=== PATIENT | female | born 1950 | race Caucasian/White ===

== ENCOUNTER 2019-08-16 07:47 | Day surgery (SDC) | payer OTHER ==
[2019-08-14 14:45] LABS: Absolute Lymphocytes (CBC) 1.4 K/uL (0.7-4.9); Basophils % 0.6 % (0-1.3); Hematocrit 42.1 % (36.0-45.0); MPV 8.5 fL (7.6-11.3)
--- NOTE | 2019-08-14 15:24 | RAD REPORT ---
EXAM DESCRIPTION: RAD - Chest Pa And Lat (2 Views) - 08/14/2019 2:40 pm CLINICAL HISTORY: preop, left arm soft tissue debridement COMPARISON: No comparisons TECHNIQUE: Frontal and lateral views of the chest were obtained. FINDINGS: The lungs are clear. Heart size is normal and central vasculature is within normal limit s. No pleural effusion or pneumothorax seen. No acute bony finding noted. No aortic abnormality. IMPRESSION: No acute cardiopulmonary process.
--- NOTE | 2019-08-14 15:24 | EKG ---
Test Date: 2019-08-14 Test Time: 14:40:18 Computer Game Programmer: LYNDSAY MEASUREMENT RESULTS: Intervals: Rate: 63 GA: 172 QRSD: 94 QT: 416 QTc: 425 Salix: P: 66 GA: 172 QRS: 65 T: 69 INTERPRETIVE STATEMENTS: Normal sinus rhythm Nonspecific ST and T wave abnormality Abnormal ECG Compared to ECG 09/18/2013 13:57:35 Possible ischemia no longer present ST (T wave) deviation still present Electronically Signed On 08-14-19 15:23:53 MANAGER MANUFACTURING by Natanael Hanna
[2019-08-16] MEDS ORDERED: CEFAZOLIN/SWI 1gm 1 GM/10 ML SYR ONE (07:57)
[2019-08-16] MEDS ORDERED: Ringers Lactate 1,000 ML IV ONE (07:57)
[2019-08-16] MEDS ORDERED: propofoL 200 MG/20 ML VIAL IV ONE (08:31)
[2019-08-16] MEDS ORDERED: FENTANYL CITR 100 MCG/2 ML ONE (08:31)
[2019-08-16] MEDS ORDERED: LIDOCAINE 1% MPF 5 ML VIAL ONE (08:31)
[2019-08-16] MEDS ORDERED: MIDAZOLAM HCL 2 MG/2 ML INJ ONE (08:31)
[2019-08-16] MEDS ORDERED: KETOROLAC 30 MG/ML INJ ONE (09:19)
[2019-08-16] MEDS ORDERED: ONDANSETRON 4 MG/2 ML VIAL ONE (09:28)
[2019-08-16] MEDS ORDERED: BUPIVACAINE 0.5% PF 10 ML VIAL ONE (09:28)
[2019-08-16 10:12] VITALS: TEMP 98.7
[2019-08-16 10:36] VITALS: BP 111/60; O2SAT 98
--- NOTE | 2019-08-16 19:08 | OP ---
Date of Procedure: 08/16/2019 Surgeon: Govind Hood MD Preoperative Diagnosis: Nonhealing wound, left arm. Postoperative Diagnosis: Nonhealing wound, left arm. Procedure: Wide excision, nonhealing wound, left arm, 4 x 2 cm with layered closure. Length of clos ure 4 cm. Estimated Blood Loss: Minimal. Specimen: Suture granuloma. Finding: As above. Anesthesia: MAC. Complications: None. Disposition: Patient tolerated the procedure in stable condition, taken to Recovery in good general condition. Operative Note: Patient was brought to the OR and placed in supine position. MAC anesthesia begun. The patient was prepped and draped in the usual sterile fashion. Marcaine 0.5% was infiltrated loca lly. A 15-blade was used to make a 4 x 2 cm incision in the left upper arm along the incision that w as previously done for an orthopedic procedure. Subcu tissue divided. A suture with granulation tis sophie identified. Suture granuloma excised, sent to Pathology as specimen. Wound irrigated. Bleeding controlled with cautery. 2-0 chromic was used to approximate subcutaneous tissue and 5-0 nylon used to close skin in interrupted fashion. Sterile dressing was applied. Patient was awakened and taken to Recovery in good general condition. Discharge Note: The patient will go to Day Surgery, and home when stable. Disposition: Home. Condition: Stable. Discharge Instructions: Resume home medications and diet. Activity as tolerated. No heavy lifting. Remove outer dressing in 2 days. Shower. Keep wound clean and dry. Follow up Wound Healing Rox ba in my clinic in 2 weeks. Cipro 5 mg p.o. q.12 and Tylenol No. 3 one tablet p.o. q.4 p.r.n. pain. /MODL Voice ID: [id number] Report ID: [id number]
== END 2019-08-16 10:48 | disposition home or self-care (01) ==
LOC: OR 07:47
PROVIDERS: ATTEND Surgery
PROC: 0JBF0ZZ Excision of Left Upper Arm Subcutaneous Tissue and Fascia, Open Approach (ICD-10-PCS; principal; 2019-08-16 09:00)
DX: S41.102A Unspecified open wound of left upper arm, initial encounter (principal); E03.9 Hypothyroidism, unspecified; G47.30 Sleep apnea, unspecified; E66.01 Morbid (severe) obesity due to excess calories; Z68.41 Body mass index [BMI] 40.0-44.9, adult; Z91.040 Latex allergy status
CPT/HCPCS: 11404; 93005; 85025; 80048; 36415; 88304; 71046; J2704; J2250; J3010; J0690; J7120; J2405; 88305

== ENCOUNTER 2019-08-29 09:56 | Emergency (ER) | payer OTHER ==
--- NOTE | 2019-08-29 10:58 | RAD REPORT ---
EXAM DESCRIPTION: Melodie Liz (2 Views)08/29/2019 10:37 am CLINICAL HISTORY: Cough COMPARISON: July 2019 FINDINGS: The lungs appear clear of acute infiltrate. The heart is normal size IMPRESSION: No acute abnormalities displayed
--- NOTE | 2019-08-29 11:21 | ER ---
Nurse's Notes [facility] Name: Sheree Daniel Age: 69 yrs Sex: Female : 1950 Arrival Date: 08/29/2019 Time: 09:59 Bed 19 Private MD: Dedrick Lantigua Diagnosis: Influenza due to identified novel influenza A virus Presentation: 08/28 10:10 Chief complaint: Patient states: Cough, congestion started Tuesday. Fever Tuesday. C/O of ca1 pain when coughing. Coronavirus screen: The patient has NOT traveled to a country currently being monitored by the [facility] within the last 14 days. The patient has NOT had contact with any known and/or suspected case of coronavirus. Ebola Screen: Patient negative for fever greater than or equal to 101.5 degrees Fahrenheit, and additional compatible Ebola Virus Disease symptoms Patient denies exposure to infectious person. Patient denies travel to an Ebola-affected area in the 21 days before illness onset. No symptoms or risks identified at this time. Initial Sepsis Screen: Does the patient meet any 2 criteria? No. Patient's initial sepsis screen is negative. Does the patient have a suspected source of infection? No. Patient's initial sepsis screen is negative. Risk Assessment: Do you want to hurt yourself or someone else? Patient reports no desire to harm self or others. Onset of symptoms was August 29, 2019. 10:10 Method Of Arrival: Ambulatory ca1 10:10 Acuity: DORIAN 3 ca1 Triage Assessment: 10:13 General: Appears in no apparent distress. comfortable, Behavior is calm, cooperative, ca1 appropriate for age. Respiratory: Airway is patent Respiratory effort is even, unlabored, Respiratory pattern is regular, symmetrical. Historical: - Allergies: 10:13 No Known Allergies; ca1 - Home Meds: 10:13 levothyroxine 75 mcg tab 1 tab once daily [Active]; ca1 - PMHx: 10:13 Thyroid problem; ca1 - PSHx: 10:13 partial thyroidectomy; ca1 - Immunization history:: Adult Immunizations up to date, Pneumococcal vaccine is up to date, Flu vaccine is not up to date. - Social history:: Smoking status: Patient denies any tobacco usage or history of. Screenin:15 Abuse screen: Denies threats or abuse. Denies injuries from another. Nutritional jl7 screening: No deficits noted. Tuberculosis screening: No symptoms or risk factors identified. Fall Risk None identified. Assessment: 11:15 General: Appears in no apparent distress. uncomfortable. Pain: Denies pain. Neuro: jl7 Level of Consciousness is awake, alert, obeys commands. Cardiovascular: Patient's skin is warm and dry. Respiratory: Airway is patent Respiratory effort is even, unlabored, Respiratory pattern is regular, symmetrical. Derm: Skin is pink, warm \T\ dry. Vital Signs: 10:10 BP 112 / 78; Pulse 87; Resp 17 S; Temp 99.3(O); Pulse Ox 96% on R/A; Weight 102.06 kg ca1 (R); Height 8 ft. 4 in. (254.00 cm) (R); 10:10 Body Mass Index 15.82 (102.06 kg, 254.00 cm) ca1 ED Course: 09:59 Patient arrived in ED. mr 10:00 Dedrick Lantigua MD is Private Physician. mr 10:12 Triage completed. ca1 10:13 Arm band placed on right wrist. ca1 10:17 Flu and/or RSV swab sent to lab. Strep swab sent to lab. ca1 10:32 Rajan Juárez RN is Primary Nurse. jl7 10:33 Annmarie Kirkland [facility]-C [facility] kb 10:33 Aung Velarde MD is Attending Physician. kb 10:34 XRAY Chest Pa And Lat (2 Views) In Process Unspecified. EDMS 11:15 Patient has correct armband on for positive identification. Bed in low position. Call jl7 light in reach. Side rails up X 1. 11:15 No provider procedures requiring assistance completed. Patient did not have IV access jl7 during this emergency room visit. Administered Medications: No medications were administered Outcome: 11:20 Discharge ordered by . kb 11:43 Discharged to home ambulatory. jl7 11:43 Discharge instructions given to patient, Instructed on discharge instructions, follow up and referral plans. Demonstrated understanding of instructions, follow-up care. 11:44 Condition: stable jl7 11:44 Patient left the ED. jl7 Signatures: Dispatcher [employer] EDMS Annmarie Kirkland FNP-C [employer] MANAGER-Arjun Breann Canas mr Rajan Juárez RN RN jl7 Acob, Lucy, RN RN ca1 Corrections: (The following items were deleted from the chart) : 11:15 Discharged to home ambulatory, [place] [id number] 11:15 Condition: stable [place] [id number] 11:15 Discharge instructions given to patient, Instructed on discharge instructions, 7 follow up and referral plans. Demonstrated understanding of instructions, follow-up care, [facility]
--- NOTE | 2019-08-29 11:21 | EDPHYS ---
Physician Documentation [facility] Name: Sheree Daniel Age: 69 yrs Sex: Female : 1950 Arrival Date: 08/29/2019 Time: 09:59 Bed 19 Private MD: Dedrick Lantigua ED Physician Aung Velarde HPI: 08/28 10:57 This 69 yrs old Female presents to ER via Ambulatory with complaints of Flu kb Symptoms. 10:57 The patient or guardian reports cough, that is intermittent, described as moderate, kb with no sputum, flu symptoms. Onset: The symptoms/episode began/occurred 4 day(s) ago. Severity of symptoms: At their worst the symptoms were moderate, in the emergency department the symptoms are unchanged. Modifying factors: The symptoms are alleviated by nothing, the symptoms are aggravated by nothing. Associated signs and symptoms: The patient has no apparent associated signs or symptoms. The patient has not experienced similar symptoms in the past. The patient has not recently seen a physician. Pt reports she was at a conference over the weekend, started coughing and having chills on Tuesday morning and the symptoms have just gotten worse. . Historical: - Allergies: 10:13 No Known Allergies; ca1 - Home Meds: 10:13 levothyroxine 75 mcg tab 1 tab once daily [Active]; ca1 - PMHx: 10:13 Thyroid problem; ca1 - PSHx: 10:13 partial thyroidectomy; ca1 - Immunization history:: Adult Immunizations up to date, Pneumococcal vaccine is up to date, Flu vaccine is not up to date. - Social history:: Smoking status: Patient denies any tobacco usage or history of. ROS: 10:55 ENT: Negative for injury, pain, and discharge, Neck: Negative for injury, pain, and kb swelling, Cardiovascular: Negative for chest pain, palpitations, and edema, Abdomen/GI: Negative for abdominal pain, nausea, vomiting, diarrhea, and constipation, Back: Negative for injury and pain, MS/Extremity: Negative for injury and deformity, Skin: Negative for injury, rash, and discoloration, Neuro: Negative for headache, weakness, numbness, tingling, and seizure. 10:55 Constitutional: Positive for body aches, chills, fatigue, malaise. 10:55 Respiratory: Positive for cough, Negative for dyspnea on exertion, hemoptysis, orthopnea, pleurisy, shortness of breath, sputum production, wheezing. Exam: 10:55 Head/Face: Normocephalic, atraumatic. ENT: Nares patent. No nasal discharge, no kb septal abnormalities noted. Tympanic membranes are normal and external auditory canals are clear. Oropharynx with no redness, swelling, or masses, exudates, or evidence of obstruction, uvula midline. Mucous membranes moist. Neck: Trachea midline, no thyromegaly or masses palpated, and no cervical lymphadenopathy. Supple, full range of motion without nuchal rigidity, or vertebral point tenderness. No Meningismus. Chest/axilla: Normal chest wall appearance and motion. Nontender with no deformity. No lesions are appreciated. Cardiovascular: Regular rate and rhythm with a normal S1 and S2. No gallops, murmurs, or rubs. Normal PMI, no JVD. No pulse deficits. Respiratory: Lungs have equal breath sounds bilaterally, clear to auscultation and percussion. No rales, rhonchi or wheezes noted. No increased work of breathing, no retractions or nasal flaring. Abdomen/GI: Soft, non-tender, with normal bowel sounds. No distension or tympany. No guarding or rebound. No evidence of tenderness throughout. Skin: Warm, dry with normal turgor. Normal color with no rashes, no lesions, and no evidence of cellulitis. MS/ Extremity: Pulses equal, no cyanosis. Neurovascular intact. Full, normal range of motion. Neuro: Awake and alert, GCS 15, oriented to person, place, time, and situation. Cranial nerves II-XII grossly intact. Motor strength 5/5 in all extremities. Sensory grossly intact. Cerebellar exam normal. Normal gait. 10:55 Constitutional: The patient appears alert, awake, uncomfortable. Vital Signs: 10:10 BP 112 / 78; Pulse 87; Resp 17 S; Temp 99.3(O); Pulse Ox 96% on R/A; Weight 102.06 kg ca1 (R); Height 8 ft. 4 in. (254.00 cm) (R); 10:10 Body Mass Index 15.82 (102.06 kg, 254.00 cm) ca1 MDM: 10:34 Patient medically screened. kb 10:55 Data reviewed: vital signs, nurses notes. Data interpreted: Pulse oximetry: on room air kb is 96 %. Interpretation: normal. 11:20 Counseling: I had a detailed discussion with the patient and/or guardian regarding: the kb historical points, exam findings, and any diagnostic results supporting the discharge/admit diagnosis, lab results, radiology results, the need for outpatient follow up, a family practitioner, to return to the emergency department if symptoms worsen or persist or if there are any questions or concerns that arise at home. 08/28 10:14 Order name: Flu; Complete Time: 10:49 ca1 08/28 10:15 Order name: Strep; Complete Time: 10:49 ca1 08/28 10:14 Order name: XRAY Chest Pa And Lat (2 Views); Complete Time: 11:16 ca1 08/28 10:49 Order name: Throat Culture EDMS Administered Medications: No medications were administered Disposition: 16:20 Co-signature as Attending Physician, Aung Velarde MD I agree with the assessment and kdr plan of care. Disposition: 08/29/19 11:20 Discharged to Home. Impression: Influenza due to identified novel influenza A virus. - Condition is Stable. - Discharge Instructions: Influenza, Adult, [id number]. - Medication Reconciliation Form, Thank You Letter, Antibiotic Education, Prescription Opioid Use form. - Follow up: Emergency Department; When: As needed; Reason: Worsening of condition. Follow up: Private Physician; When: 2 - 3 days; Reason: Recheck today's complaints, Continuance of care, Re-evaluation by your physician. Signatures: Dispatcher MedHost EDTN Annmarie Kirkland, CORE CHECKER-C CORE CHECKER-Aung Salazar MD MD kdr Leal, Jahala RN RN jl7 Lucy Andrade RN RN ca1 Corrections: (The following items were deleted from the chart) 11:44 11:20 08/29/2019 11:20 Discharged to Home. Impression: Influenza due to identified jl7 novel influenza A virus. Condition is Stable. Forms are Medication Reconciliation Form, Thank You Letter, Antibiotic Education, Prescription Opioid Use. Follow up: Emergency Department; When: As needed; Reason: Worsening of condition. Follow up: Private Physician; When: 2 - 3 days; Reason: Recheck today's complaints, Continuance of care, Re-evaluation by your physician. kb
[2019-08-29 11:49] VITALS: BP 112/78; TEMP 99.3; O2SAT 96
== END 2019-08-29 11:44 | disposition home or self-care (01) ==
LOC: ER 09:56
DX: J09.X9 Influenza due to identified novel influenza A virus with other manifestations (principal); E07.9 Disorder of thyroid, unspecified
CPT/HCPCS: 71046; 87070; 87081; 87804; 99283

== ENCOUNTER 2020-02-15 08:27 | Day surgery (SDC) | payer OTHER ==
[2020-02-11 12:20] LABS: Absolute Lymphocytes (CBC) 1.9 K/uL (0.7-4.9); Basophils % 0.7 % (0-1.3); Hematocrit 40.6 % (36.0-45.0); Lymphocytes % 34.7 % (15.3-44.8); MPV 9.2 fL (7.6-11.3); RBC Red Blood Cell Count 4.29 M/uL (3.86-4.86)
--- NOTE | 2020-02-11 12:43 | RAD REPORT ---
EXAM DESCRIPTION: RAD - Chest Pa And Lat (2 Views) - 02/11/2020 12:31 pm CLINICAL HISTORY: PRE OP FOR SURGERY Chest pain. COMPARISON: Chest Pa And Lat (2 Views) dated 08/29/2019; Chest Pa And Lat (2 Views) dated 08/14/2019 FINDINGS: The lungs are mildly emphysematous but clear. The heart is mildly prominent in size. No di splaced fractures. Hardware is present left humerus. IMPRESSION: Mild COPD.
[2020-02-11 12:48] LABS: Potassium 3.9 mmol/L (3.5-5.1)
--- OUTSIDE RECORDS SUMMARY | 2020-02-15 08:29 | XMS REPORT | Clinical Summary ---
:1950 Author Organization [facility] Address [address] [place] [address] Care Team Providers Name Role Phone Unknown, Phys Primary Care Provider Unavailable Allergies Active Allergy Reactions Severity Noted Date Comments Morphine 05/04/2016 Acetaminophen 05/04/2016 Medications No known medications Active Problems Not on file Family History Medical History Relation Name Comments Cancer Brother throat Hypertension Maternal Grandmother Stroke Maternal Grandmother Cancer Mother Relation Name Status Comments Brother Alive Father adrenal tumor Maternal Grandmother Mother Paternal Grandmother 99 years ol d Social History Tobacco Use Types Packs/Day Years Used Date Never Smoker Alcohol Use Drinks/Week oz/Week Comments No Sex Assigned at Date Recorded Not on file Job Start Date Occupation Industry Not on file Not on file Not on file Travel History Travel Start Travel End No recent travel history available. Last Filed Vital Signs Not on file Plan of Treatment Health Maintenance Due Date Last Done Comments BREAST CANCER SCREENING 1999 COLONOSCOPY SCREENING 1999 SHINGLES VACCINES (#1) 1999 65+ PNEUMOCOCCAL VACCINE (1 of 2 - PCV13) 2014 INFLUENZA VACCINE 03/27/2020 Results Not on fileafter 02/14/2019 Insurance Payer Benefit Plan / Subscriber ID Effective Dates Phone Addre ss Type Group MEDICARE MEDICARE PART A xxxxxxxxxx 2014-Present [place] B AETNA AETNA PPO OPEN xxxxxxxxxx 2000-Present PPO CHOICE Advance Directives For more information, please contact: [phone] Type Date Recorded 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
[2020-02-15] MEDS ORDERED: Ringers Lactate 1,000 ML IV ONE (09:05)
[2020-02-15] MEDS ORDERED: CEFAZOLIN/SWI 1gm 1 GM/10 ML SYR ONE (09:05)
[2020-02-15] MEDS ORDERED: FENTANYL CITR 100 MCG/2 ML ONE (10:09)
[2020-02-15] MEDS ORDERED: LIDOCAINE 2% MPF 5 ML VIAL ONE (10:09)
[2020-02-15] MEDS ORDERED: propofoL 200 MG/20 ML VIAL IV ONE (10:09)
[2020-02-15] MEDS ORDERED: ONDANSETRON 4 MG/2 ML VIAL ONE (10:09)
[2020-02-15] MEDS ORDERED: MIDAZOLAM HCL 2 MG/2 ML INJ ONE (10:20)
--- NOTE | 2020-02-15 11:34 | OP ---
Date of Procedure: 02/15/2020 Surgeon: Govind Hood MD Continuous Pickling Line Pickler: None. Preoperative Diagnosis: Nonhealing wound, left arm. Rule out suture granuloma. Postoperative Diagnosis: Nonhealing wound, left arm. Rule out suture granuloma. Procedure: Wide excision of left arm wound, 5 x 2 cm with layered closure. Estimated Blood Loss: Minimal. Specimen: Left arm wound. Findings: As above. Anesthesia: MAC. Complications: None. Disposition: The patient tolerated the procedure in stable condition, taken to Recovery in good gene ral condition. Description Of Procedure: The patient was brought to the OR and placed in supine position. MAC anes thesia begun. The patient was prepped and draped in the usual sterile fashion. Marcaine 0.5% was in filtrated locally. A 15-blade was used to make a 5 x 2 cm incision to excise this area of slight ind uration and redness concerning for suture granuloma all the way down to the deep subcutaneous tissue. All granulation tissue excised, sent to Pathology. Wound irrigated. Bleeding controlled with caut allan. Flaps created. 3-0 chromic used to approximate the subcutaneous tissues and 4-0 nylon used to close the skin. Sterile dressing was applied. The patient was awakened and taken to Recovery in goo d general condition. Discharge Note: The patient will go to Day Surgery and home when stable. Disposition: Home. Condition: Stable. Discharge Instructions: Resume home medications and diet. Activity as tolerated. No heavy lifting. Remove outer dressing in 2 days. Shower. Keep wound clean and dry. Follow up Wound Healing Rox ba and my clinic in 10 days. Tylenol No. 3 one tablet p.o. q.4 p.r.n. pain and Keflex 500 mg p.o. q.6 . /MODL Voice ID: [id number] Report ID: [id number]
[2020-02-15 16:11] VITALS: BP 113/57; TEMP 98.5; O2SAT 98
== END 2020-02-15 11:40 | disposition home or self-care (01) ==
LOC: OR 08:27
PROVIDERS: ATTEND Surgery
PROC: 0JBF0ZZ Excision of Left Upper Arm Subcutaneous Tissue and Fascia, Open Approach (ICD-10-PCS; principal; 2020-02-15 09:30)
DX: S41.102A Unspecified open wound of left upper arm, initial encounter (principal); X58.XXXA Exposure to other specified factors, initial encounter; L90.5 Scar conditions and fibrosis of skin; E03.9 Hypothyroidism, unspecified; M25.50 Pain in unspecified joint; E66.9 Obesity, unspecified; H26.9 Unspecified cataract; Z11.59 Encounter for screening for other viral diseases; J44.9 Chronic obstructive pulmonary disease, unspecified
CPT/HCPCS: 93005; 85025; 80048; 36415; 88304; 71046; 11402; 12032; U0002; J2704; J2250; J3010; J0690; J7120; J2405; 88305

== ENCOUNTER 2020-11-29 13:53 | Emergency (ER) | payer OTHER ==
--- OUTSIDE RECORDS SUMMARY | 2020-11-29 13:55 | XMS REPORT | Continuity of Care Document ---
:1950 [address] [facility] [place] [place] t Address [address] [place] [address] Care Team Providers Name Role Phone Unavailable Unavailable Unavailable Payers Payer Name Policy Type Policy Number Effective Date Expiration Date S ource Problems This patient has no known problems. Allergies, Adverse Reactions, Alerts Allergy Allergy Status Severity Reaction(s) Onset Inactive Treating Comm ents Source Name Type Date Date Clinician CARPROFE DA Active [facility] N 1-07 Clear 00:00: Vazquez 00 [facility] RIMADYL DA Active [facility] 1-07 Clear 00:00: Vazquez [facility] morphine DA Active SV 0 [facility] 1-07 Clear 00:00: Vazquez 00 [facility] acetamin DA Active [facility] 0 [facility] ophen 1-07 Clear 00:00: Vazquez 00 [facility] lactose FA Active [facility] 1-07 Clear 00:00: Vazquez 00 [facility] latex DA Active [facility] 1-07 Clear 00:00: Vazquez 00 [facility] No Known DA Active U 0 [facility] Drug 3[facility]14 [place] [facility] 00:[facility]: [facility] Medications This patient has no known medications. Procedures This patient has no known procedures. Results Test Description Test Time Test Comments Results Result Comments Source Novel Coronavirus 2018 Inhouse 2020-07-04 04:51:00 Test Item Value Reference Range Interpretation Comme nts Novel Coronavirus 2018 Negative Negative Posit carmen results are indicative of the Inhouse (test code = presenc e [id number] RNA, clinical COVNONPUI) correlation wit h patient historyand other diagnosti c information is necessary to de terminepatient infection status. Positiv e results do not rule outbacterial in fection or co-infection with other viru ses. Negative results do not preclude SA RS-CoV-2 infection andshould not b e used as the sole basis for patient man agementdecisions. Negative result s must be combined with otherclinical o bservations, patient history, and ep idemiologicalinformation. Detection of SA RS-CoV-2 RNA may be affected bysamp le collection methods, storage conditi ons, and/or stageof infection. Taryn l RNA mutations, vaccinations, a ntiviraltherapeutics, antibiotics, ch emotherapeutic orimmunosuppres yadira drugs have not been evaluated for e ffectson detection. Results are for the identification of SARS-CoV-2 RNA usingthe Infinite Z000 System under th e FDA Emergency UseAuthorizatio n. The testing is performed by dinora macdonaldrained in the procedures for the Infinite Z000 moleculardiagno stic SARS-CoV-2 assay in vitro. Novel Coronavirus 2018 [id number] 04:51:00 Test Item Value Reference Range Interpretation Comments Novel Coronavirus Negative Negative Positive r esults are 2019 Inhouse (test indicativ e of the presence code = COVNONPUI) ofSARS-CoV -2 RNA, clinical correlation wit h patient historyand othe r diagnostic info rmation is necessary to determinepatien t infection status. Positiv e results do not rule out bacterial infection or co -infection with other viru ses. Negative result s do not preclude SARS-C oV-2 infection andsh ould not be used as the doe e basis for patient managementdecis ions. Negative result s must be combined with otherclinical observations, p atient history, and epidemiological information . Detection of SARS-CoV-2 RNA may be affe cted bysample collec tion methods, storag e conditions, and /or stageof infection. Taryn l RNA mutations, vacc inations, antiviraltherap eutics, antibiotics, chemotherapeuti c orimmunosuppres yadira drugs have not been e valuated for effectson d etection. Results are for the identification of SARS-CoV-2 RNA usingthe Edge[employer] M2000 Sy stem under the FDA Emergen cy UseAuthorizatio n. The testing is perf ormed by sam guerra in the procedures for the Infinite Z000 molecular diagnostic SARS-CoV-2 mavisa y in vitro.
[2020-11-29] MEDS ORDERED: ONDANSETRON 4 MG/2 ML VIAL ONE (15:10)
[2020-11-29] MEDS ORDERED: FENTANYL CITR 100 MCG/2 ML ONE (15:10)
[2020-11-29 15:12] LABS: Absolute Lymphocytes (CBC) 1.5 K/uL (0.7-4.9); Basophils % 0.4 % (0-1.3); Hematocrit 40.3 % (36.0-45.0); MPV 8.9 fL (7.6-11.3); RBC Red Blood Cell Count 4.24 M/uL (3.86-4.86)
[2020-11-29 15:29] LABS: Albumin 3.9 g/dL (3.4-5.0); Bilirubin Direct 0.3 mg/dL (0-0.2); Bilirubin Total 1.5 mg/dL (0.2-1.0); Potassium 4.3 mmol/L (3.5-5.1); Protein, Total 7.4 g/dL (6.4-8.2)
--- NOTE | 2020-11-29 16:12 | RAD REPORT ---
EXAM DESCRIPTION: CTAbdomen Pelvis W Contrast - 11/29/2020 3:44 pm CLINICAL HISTORY: Abdominal pain. ABD PAIN COMPARISON: CT ABD PELVIS W CONTRAST dated 11/18/2011 TECHNIQUE: Biphasic CT imaging of the abdomen and pelvis was performed with 100 ml non-ionic IV cont rast. All CT scans are performed using dose optimization technique as appropriate and may include automated exposure control or mA/KV adjustment according to patient size. FINDINGS: The lung bases are clear.Small hiatal hernia. Mild fatty liver is present. Small liver cysts noted. No intra or extrahepatic biliary tree dilatatio n. The spleen, pancreas, adrenal glands and kidneys show no acute finding. Small benign cyst is prese nt superior pole left kidney. No bowel obstruction, free air, free fluid or abscess. 4-5 cm area of the sigmoid colon in the left l ower quadrant demonstrates mild inflammation. Several diverticula are present in the region. The appe ndix is normal. No evidence of significant lymphadenopathy. Mild lumbar degenerative changes. IMPRESSION: Mild acute diverticulitis is suspected left lower quadrant sigmoid colon. No abscess thelma dent. Following appropriate therapy, colonoscopy would be suggested if not recently performed.
--- NOTE | 2020-11-29 16:35 | EDPHYS ---
Physician Documentation [facility] Name: Sheree Daniel Age: 70 yrs Sex: Female : 1950 Arrival Date: 11/29/2020 Time: 13:57 Bed 13 Private MD: ED Physician En Prince HPI: 11/29 14:36 This 70 yrs old Female presents to ER via Ambulatory with complaints of pm1 Abdominal Pain. 14:36 The patient presents with abdominal pain in the left lower quadrant. Onset: The pm1 symptoms/episode began/occurred this morning, at 02:00. The symptoms do not radiate. Associated signs and symptoms: none. Pertinent negatives: nausea, vomiting, and diarrhea, chest pain, shortness of breath. The symptoms are described as sharp. Modifying factors: The symptoms are alleviated by nothing, the symptoms are aggravated by nothing. Severity of pain: in the emergency department the pain is actually worse. The patient has experienced a previous episode, and the symptoms today are exactly the same, to prior diverticulitis. The patient has not recently seen a physician. Historical: - Allergies: 14:07 Tylenol (Upset stomach); aa5 14:07 Morphine (Upset stomach); aa5 14:07 lactose (bulk); aa5 14:07 Latex, Natural Rubber; aa5 - PMHx: 14:07 Thyroid problem; colitis; aa5 - PSHx: 14:07 partial thyroidectomy; R Rotator cuff; aa5 - Immunization history:: Adult Immunizations unknown. - Social history:: Smoking status: Patient denies any tobacco usage or history of. ROS: 14:36 Constitutional: Negative for fever, chills, and weight loss, Eyes: Negative for injury, pm1 pain, redness, and discharge, ENT: Negative for injury, pain, and discharge, Cardiovascular: Negative for chest pain, palpitations, and edema, Respiratory: Negative for shortness of breath, cough, wheezing, and pleuritic chest pain. 14:36 Back: Negative for injury and pain, : Negative for injury, bleeding, discharge, and swelling, MS/Extremity: Negative for injury and deformity, Skin: Negative for injury, rash, and discoloration, Neuro: Negative for headache, weakness, numbness, tingling, and seizure. 14:36 Abdomen/GI: Positive for abdominal pain, Negative for nausea, vomiting, and diarrhea. Exam: 14:36 Constitutional: This is a well developed, well nourished patient who is awake, alert, pm1 and in no acute distress. Head/Face: Normocephalic, atraumatic. 14:36 Back: No spinal tenderness. No costovertebral tenderness. Full range of motion. Skin: Warm, dry with normal turgor. Normal color with no rashes, no lesions, and no evidence of cellulitis. MS/ Extremity: Pulses equal, no cyanosis. Neurovascular intact. Full, normal range of motion. 14:36 Eyes: Exam is negative for acute changes, Periorbital structures: appear normal, Extraocular movements: no acute changes. 14:36 ENT: Mouth: Lips: normal, Oral mucosa: normal, pink and intact, moist. 14:36 Cardiovascular: Rate: normal, Rhythm: regular, Pulses: no pulse deficits are appreciated, Edema: is not appreciated. 14:36 Respiratory: Exam negative for acute changes, respiratory distress, shortness of breath, Breath sounds: are clear throughout. 14:36 Abdomen/GI: Inspection: abdomen appears normal, Palpation: soft, in all quadrants, mild abdominal tenderness, in the left lower quadrant. 14:36 Neuro: Exam negative for acute changes, Orientation: is normal, Mentation: is normal, Motor: is normal, moves all fours. Vital Signs: 14:05 BP 139 / 95; Pulse 88; Resp 18 S; Temp 97.2(TE); Pulse Ox 98% on R/A; Weight 99.79 kg aa5 (R); Height 5 ft. 4 in. (162.56 cm) (R); 14:53 BP 138 / 73; Pulse 72; Resp 16; Pulse Ox 98% on R/A; vg1 15:58 BP 143 / 84; Pulse 68; Resp 16; Pulse Ox 97% on R/A; vg1 14:05 Body Mass Index 37.76 (99.79 kg, 162.56 cm) aa5 MDM: 14:31 Patient medically screened. pm1 16:31 Data reviewed: vital signs. Data interpreted: Pulse oximetry: on room air is 97 %. pm1 Interpretation: normal. 16:31 Counseling: I had a detailed discussion with the patient and/or guardian regarding: the pm1 historical points, exam findings, and any diagnostic results supporting the discharge/admit diagnosis, lab results, radiology results, the need for outpatient follow up, a ambulette driver, follow up and follow up colonoscopy. Patient offered admission but she and prefer to go home. Educated on return precautions , to return to the emergency department if symptoms worsen or persist or if there are any questions or concerns that arise at home. 16:36 ED course: [place] reviewed. 07/11/2020 last prescription . pm1 11/29 14:31 Order name: Basic Metabolic Panel; Complete Time: 15:52 pm11/29 14:31 Order name: CBC with Diff; Complete Time: 15:15 pm11/29 14:31 Order name: Hepatic Function; Complete Time: 15:52 pm11/29 14:31 Order name: Lipase; Complete Time: 15:52 pm11/29 14:31 Order name: CT Abd/Pelvis - IV Contrast Only; Complete Time: 16:14 pm11/29 14:31 Order name: IV Saline Lock; Complete Time: 14:50 pm1 11/29 14:31 Order name: Labs collected and sent; Complete Time: 14:50 pm1 Administered Medications: 14:57 Drug: Zofran (Ondansetron) 4 mg Route: IVP; Site: right antecubital; vg1 15:59 Follow up: Response: No adverse reaction vg1 14:59 Drug: fentaNYL (PF) 25 mcg Route: IVP; Site: right antecubital; vg1 15:59 Follow up: Response: No adverse reaction; Pain is decreased vg1 16:28 Drug: Flagyl (metroNIDAZOLE) 500 mg Volume: 100 ml; Route: IVPB; Rate: 200 ml/hr; vg1 Infused Over: 30 mins; Site: right antecubital; 17:04 Follow up: IV Status: Completed infusion; IV Intake: 100ml vg1 16:29 Drug: Ciprofloxacin 500 mg Route: PO; vg1 17:04 Follow up: Response: No adverse reaction vg1 Disposition: 11/29/20 16:33 Discharged to Home. Impression: Diverticulitis of large intestine without perforation or abscess without bleeding. - Condition is Stable. - Discharge Instructions: Clear Liquid Diet, Adult, Diverticulitis. - Prescriptions for Flagyl 500 mg Oral Tablet - take 1 tablet by ORAL route every 6 hours for 10 days; 40 tablet. Cipro 500 mg Oral Tablet - take 1 tablet by ORAL route every 12 hours for 10 days; 20 tablet. Tramadol 50 mg Oral Tablet - take 1 tablet by ORAL route every 8 hours as needed; 12 tablet. - Medication Reconciliation Form, Thank You Letter, Antibiotic Education, Prescription Opioid Use form. - Follow up: Emergency Department; When: As needed; Reason: Worsening of condition. Follow up: Private Physician; When: 2 - 3 days; Reason: Recheck today's complaints, Continuance of care, Re-evaluation by your physician. - Problem is new. - Symptoms have improved. Addendum: 12/02/2020 07:40 Co-signature as Attending Physician, En Prince MD I agree with the assessment and c ortega plan of care. Signatures: Dispatcher [employer] EDVT En Prince MD MD cha Calderon, Audri, RN RN aa5 Inocente Thompson, FOOD GENERAL MANAGER FOOD GENERAL MANAGER pm1 Perri Anne RN RN vg1 Corrections: (The following items were deleted from the chart) 11/29 17:11 16:33 11/29/2020 16:33 Discharged to Home. Impression: Diverticulitis of large vg1 intestine without perforation or abscess without bleeding. Condition is Stable. Forms are Medication Reconciliation Form, Thank You Letter, Antibiotic Education, Prescription Opioid Use. Follow up: Emergency Department; When: As needed; Reason: Worsening of condition. Follow up: Private Physician; When: 2 - 3 days; Reason: Recheck today's complaints, Continuance of care, Re-evaluation by your physician. Problem is new. Symptoms have improved. pm1
--- NOTE | 2020-11-29 16:35 | ER ---
Nurse's Notes [facility] Name: Sheree Daniel Age: 70 yrs Sex: Female : 1950 Arrival Date: 11/29/2020 Time: 13:57 Bed 13 Private MD: Diagnosis: Diverticulitis of large intestine without perforation or abscess without bleeding Presentation: 11/29 14:05 Chief complaint: Patient states: LLQ pain since 0200 today. Pt denies aa5 nausea/vomiting/diarrhea. Coronavirus screen: At this time, the client does not indicate any symptoms associated with coronavirus-19. Ebola Screen: Patient negative for fever greater than or equal to 101.5 degrees Fahrenheit, and additional compatible Ebola Virus Disease symptoms. Initial Sepsis Screen: Does the patient meet any 2 criteria? No. Patient's initial sepsis screen is negative. Does the patient have a suspected source of infection? No. Patient's initial sepsis screen is negative. Risk Assessment: Do you want to hurt yourself or someone else? Patient reports no desire to harm self or others. Onset of symptoms was November 2020. 14:05 Method Of Arrival: Ambulatory aa5 14:05 Acuity: DORIAN 3 aa5 Historical: - Allergies: 14:07 Tylenol (Upset stomach); aa5 14:07 Morphine (Upset stomach); aa5 14:07 lactose (bulk); aa5 14:07 Latex, Natural Rubber; aa5 - PMHx: 14:07 Thyroid problem; colitis; aa5 - PSHx: 14:07 partial thyroidectomy; R Rotator cuff; aa5 - Immunization history:: Adult Immunizations unknown. - Social history:: Smoking status: Patient denies any tobacco usage or history of. Screenin:54 Abuse screen: Denies threats or abuse. Nutritional screening: No deficits noted. vg1 Tuberculosis screening: No symptoms or risk factors identified. Fall Risk No fall in past 12 months (0 pts). No secondary diagnosis (0 pts). IV access (20 points). Ambulatory Aid- None/Bed Rest/Nurse Assist (0 pts). Gait- Normal/Bed Rest/Wheelchair (0 pts) Mental Status- Oriented to own ability (0 pts). Total Feliciano Fall Scale indicates No Risk (0-24 pts). Assessment: 14:35 General: Appears in no apparent distress. comfortable, Behavior is calm, cooperative. vg1 Pain: Complains of pain in left lower quadrant Pain currently is 5 out of 10 on a pain scale. Pain began this morning around 0300. Neuro: Level of Consciousness is awake, alert, obeys commands, Oriented to person, place, time, situation. Cardiovascular: Patient's skin is warm and dry. Respiratory: Airway is patent Respiratory effort is even, unlabored. GI: Bowel sounds present X 4 quads. Abdomen is tender to palpation in left lower quadrant Reports normal bowel habits, Patient currently denies diarrhea, nausea, vomiting. : No signs and/or symptoms were reported regarding the genitourinary system. EENT: No signs and/or symptoms were reported regarding the EENT system. Derm: Skin is intact, is healthy with good turgor. Musculoskeletal: Circulation, motion, and sensation intact. 15:58 Reassessment: Patient appears in no apparent distress at this time. Patient and/or vg1 family updated on plan of care and expected duration. Pain level reassessed. Patient is alert, oriented x 3, equal unlabored respirations, skin warm/dry/pink. States pain is now 2/10. 16:41 Reassessment: Pt up for d/c, currently waiting for IV antibiotics to complete. vg1 Vital Signs: 14:05 BP 139 / 95; Pulse 88; Resp 18 S; Temp 97.2(TE); Pulse Ox 98% on R/A; Weight 99.79 kg aa5 (R); Height 5 ft. 4 in. (162.56 cm) (R); 14:53 BP 138 / 73; Pulse 72; Resp 16; Pulse Ox 98% on R/A; vg1 15:58 BP 143 / 84; Pulse 68; Resp 16; Pulse Ox 97% on R/A; vg1 14:05 Body Mass Index 37.76 (99.79 kg, 162.56 cm) aa5 ED Course: 13:57 Patient arrived in ED. rg4 14:05 Arm band placed on. aa5 14:06 Triage completed. aa5 14:25 Perri Anne, SACHA is Primary Nurse. vg1 14:30 Inocente Thompson NP is PHCP. pm1 14:30 En Prince MD is Attending Physician. pm1 14:50 Initial lab(s) drawn, by me, sent to lab. Inserted saline lock: 20 gauge in right vg1 antecubital area, using aseptic technique. Blood collected. 14:54 Patient has correct armband on for positive identification. Bed in low position. Call vg1 light in reach. Side rails up X 1. 15:44 CT Abd/Pelvis - IV Contrast Only In Process Unspecified. EDMS 17:10 No provider procedures requiring assistance completed. IV discontinued, intact, vg1 bleeding controlled, No redness/swelling at site. Pressure dressing applied. Administered Medications: 14:57 Drug: Zofran (Ondansetron) 4 mg Route: IVP; Site: right antecubital; vg1 15:59 Follow up: Response: No adverse reaction vg1 14:59 Drug: fentaNYL (PF) 25 mcg Route: IVP; Site: right antecubital; vg1 15:59 Follow up: Response: No adverse reaction; Pain is decreased vg1 16:28 Drug: Flagyl (metroNIDAZOLE) 500 mg Volume: 100 ml; Route: IVPB; Rate: 200 ml/hr; vg1 Infused Over: 30 mins; Site: right antecubital; 17:04 Follow up: IV Status: Completed infusion; IV Intake: 100ml vg1 16:29 Drug: Ciprofloxacin 500 mg Route: PO; vg1 17:04 Follow up: Response: No adverse reaction vg1 Intake: 17:04 IV: 100ml; Total: 100ml. vg1 Outcome: 16:33 Discharge ordered by MD. pm1 17:10 Discharged to home ambulatory. vg1 17:10 Condition: stable 17:10 Discharge instructions given to patient, Instructed on discharge instructions, follow up and referral plans. medication usage, Demonstrated understanding of instructions, follow-up care, medications, Prescriptions given X 3. 17:11 Patient left the ED. vg1 Signatures: Dispatcher [employer] EDMS Amanda Akbar, RN RN aa5 Inocente Thompson, ENDLESS STEAMER TENDER ENDLESS STEAMER TENDER pm1 Seble Anne4 Perri Anne RN RN vg1
[2020-11-29] MEDS ORDERED: METRONIDAZOLE 500mg IVPB 500 MG/100 ML BAG IV ONE (16:44)
[2020-11-29] MEDS ORDERED: CIPROFLOXACIN HCL 500 MG TAB ONE (16:44)
[2020-11-29 17:32] VITALS: TEMP 97.2
[2020-11-29 17:35] VITALS: BP 143/84; O2SAT 97
== END 2020-11-29 17:11 | disposition home or self-care (01) ==
LOC: ER 13:53
DX: K57.32 Diverticulitis of large intestine without perforation or abscess without bleeding (principal); Z88.5 Allergy status to narcotic agent; Z88.6 Allergy status to analgesic agent; Z91.011 Allergy to milk products; Z91.040 Latex allergy status; Z91.048 Other nonmedicinal substance allergy status
CPT/HCPCS: 96365; 85025; 80048; 36415; 80076; 83690; 74177; 96375; 99284; Q9967; J3010; J2405

== ENCOUNTER 2024-07-19 07:46 | Observation (INO) | payer OTHER ==
[2024-07-11 13:27] LABS: Specific Gravity 1.005 (1.005-1.030); Urine Bilirubin NEGATIVE (Negative); Urine Blood Negative (Negative); Urine Clarity Clear (Clear); Urine Color Colorless (Yellow); Urine Glucose NEGATIVE (Negative); Urine Ketones NEGATIVE (Negative); Urine Microscopic Reflex YN NO UMIC; Urine Nitrite NEGATIVE (Negative); Urine Protein NEGATIVE (Negative); Urine Urobilinogen Normal (Normal); Urine pH 6.5 (5.0-7.0)
[2024-07-11 13:27] LABS: Absolute Eosinophils 0.1 K/uL (0-0.5); Absolute Lymphocytes (CBC) 1.7 K/uL (0.7-4.9); Absolute Monocytes 0.3 K/uL (0.1-1.3); Absolute Neutrophil 2.7 K/uL (1.8-8.0); Basophils % 0.4 % (0-1.3); Eosinophils % 1.4 % (0-4.4); Hematocrit 41.7 % (36.0-45.0); Lymphocytes % 35.3 % (15.3-44.8); MCH 32.1 pg (27.0-35.0); MCHC 33.4 g/dL (32.0-36.0); MCV 96.1 fL (80-100); MPV 8.6 fL (7.6-11.3); Monocytes % 7.3 % (3.3-12.3); Neutrophils % 55.6 % (41.7-73.7); Platelets 259 thou/uL (152-406); RBC Red Blood Cell Count 4.34 M/uL (3.86-4.86)
[2024-07-11 13:39] LABS: PT Prothrombin Time 10.7 SECONDS (9.4-12.5); PTT, Activated Partial Thromb 33.6 SECONDS (24.3-36.9); Protime INR 1.02
[2024-07-11 13:40] LABS: Anion Gap 5.4 mEq/L (5.0-15.0); Potassium 3.4 mEq/L (3.5-5.1)
--- NOTE | 2024-07-12 11:50 | EKG ---
Test Date: 2024-07-11 Test Time: 14:12:20 Prototype Machinist: KANDICE MEASUREMENT RESULTS: Intervals: Rate: 63 CA: 172 QRSD: 96 QT: 408 QTc: 417 [place]: P: 67 CA: 172 QRS: 75 T: 70 INTERPRETIVE STATEMENTS: Normal sinus rhythm Normal ECG Compared to ECG 02/11/2020 12:04:12 Sinus bradycardia no longer present ST (T wave) deviation no longer present Electronically Signed On 07-12-24 11:49:56 FIREWORKS DISPLAY SPECIALIST by Ranjeet Shaver
[2024-07-19] MEDS: CEFAZOLIN SODIUM 1 GM/VIAL ONE ×2 (08:08→08:33)
[2024-07-19] MEDS: Ringers Lactate 1,000 ML IV ONE (08:27)
[2024-07-19] MEDS ORDERED: propofoL 200 MG/20 ML VIAL IV ONE (08:32)
[2024-07-19] MEDS ORDERED: FENTANYL CITR 100 MCG/2 ML ONE ×2 (08:32→10:13)
[2024-07-19] MEDS ORDERED: ONDANSETRON 4 MG/2 ML VIAL ONE (08:32)
[2024-07-19] MEDS ORDERED: LIDOCAINE 2% MPF 5 ML VIAL ONE (08:32)
[2024-07-19] MEDS: LIDOCAINE HCL/EPINEPHRINE 20 ML MDV ONE (08:34)
[2024-07-19] MEDS: NA CHLORIDE 0.9% 100 ML ONE (08:34)
[2024-07-19] MEDS ORDERED: EPHEDRINE SULF 50 MG/ML VIAL ONE (09:15)
[2024-07-19] MEDS: CEFAZOLIN SODIUM 2 GM/VIAL ONE (09:30)
[2024-07-19] MEDS: VASOPRESSIN 20 UNIT/ML VIAL ONE (09:50)
[2024-07-19] MEDS ORDERED: GLYCOPYRROLATE 0.2 MG/ML SYR ONE (10:12)
[2024-07-19] MEDS ORDERED: HYDROMORPHONE HCL 1 MG/ML INJ IV PRN (12:11)
[2024-07-19] MEDS ORDERED: ONDANSETRON 4 MG/2 ML VIAL IV PRN (12:11)
--- NOTE | 2024-07-19 12:20 | P.BOP ---
Preoperative diagnosis: posterior wall prolapse stage 2, enterocele, perineocele Postoperative diagnosis: same Primary procedure: bilateral SSLF post approach cervico-colpopexy, post wall/enterocele repair Secondary procedure: biological graft augmented post repair, perineocele repair, cysto Estimated blood loss: 150 Specimen: none Findings: -2/-2/-6/4.5/mod/8/0/+1/-5, site specific Lf lower post wall/perine ocele Anesthesia: General Complications: None Drain(s): Urinary catheter Implants: axis dermis graft Transferred to: Recovery Room Condition: Good
[2024-07-19 12:49] VITALS: O2SAT 100
[2024-07-19] MEDS: Ringers Lactate 1,000 ML IV SCH (13:53)
[2024-07-19 14:11] VITALS: BMI 38.6
[2024-07-19] MEDS: NAPROXEN 250 MG TAB PO PRN (14:44)
[2024-07-19] MEDS: CEFAZOLIN 1 GM in NA CHLORIDE 0.9% 50 ML IVPB SCH (16:56)
[2024-07-19] MEDS: IBUPROFEN 600 MG TAB PO PRN (19:54)
--- NOTE | 2024-07-20 03:53 | OP ---
Date of Procedure: 07/19/2024 Surgeon: Gloria Loo MD Payroll Coordinator: No assistants. Preoperative Diagnoses: Posterior wall prolapse, stage II; enterocele; perineocele; constipation by outlet obstruction and splinting. Postoperative Diagnoses: Posterior wall prolapse, stage II; enterocele; perineocele; constipation by outlet obstruction and splinting. Procedures Performed: 1.Bilateral sacrospinous ligament fixation. 2.Colpopexy using a posterior approach. 3.Graft augmented posterior wall and posterior enterocele repairs. 4.Distal posterior wall repair, that is a site-specific repair. 5.Perineocele repair. 6.Cystoscopy. Anesthesia: General anesthesia. Estimated Blood Loss: 150. Specimens: No specimens. Complications: No complications. Drains: Rivera catheter and vaginal packing. Findings: POP-Q is -2, -2, -6, 4.5, moderate, 8, 0, +1, and -5. A site-specific left lower posterio r wall defect was repaired, where there was a significant avulsion of the rectovaginal connective tis sophie from the perineal body structures as well as the left lateral wall. A scar from an episiotomy or laceration repair was noted, where the vaginal epithelium was pretty significantly dimpled and the s carring is directly to the rectal wall. This was carefully dissected. This area was repaired in 2 l ruffin, and site-specific repair was performed. Rectal exam was negative at the end. Cystoscopy show ed patent ureteric orifices on both sides. No evidence of any trauma to the bladder. Implants: [place] Dermis graft 8 x 6 graft. Disposition: Transferred to the recovery room in a stable condition. 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 She was evaluated in the office. Vaginal estrogen was given. She was counseled about al l the different options of observation, pelvic floor therapy, and vaginal reconstruction. Also discu ssed about laparoscopic reconstruction; however, I strongly recommended a vaginal reconstruction as t he defect was mostly distal. There is no history of any pelvic pathology or symptoms like postmenopa usal bleeding or pelvic pain. Transvaginal ultrasound did not show any adnexal masses. No endometri al pathology was noted. Early constipation was managed by starting her on a bowel regimen to avoid c onstipation postoperatively. She was then optimized medically, consented after medical clearance was done, and scheduled for a surgery. Procedure In Detail: After informed consent was re-verified, and her and her had time to ask questions, and were given answered to their satisfaction, they went back to the operating room. She was placed in supine fashion on the operating table. General anesthesia was given. She was plac ed in a dorsal lithotomy position using Denny stirrups. Lower abdomen, vulva, vagina, and perineum w ere prepped and draped in a sterile fashion. Rivera catheter was placed to drain the bladder, and cla mped and retracted superiorly. SCDs were started. The patient was grounded. Time-out was done and procedure was started. 2 g of Ancef was given preoperatively. The POP-Q was done as dictated above and it was very clear that the distal repair had to be significa nt. The rectovaginal exam was performed to palpate the dimple that was present as a consequence of h er fourth degree repair with her first vaginal . The perineum was marked out with an inverted triangle starting at the hymenal remnant and coming down onto the perineum. Then, an inverted V shaped incision was made on the top in the posterior vaginal wall for me to be able to expose the vaginal epithelium and connective tissue from the lateral forni pete and be able to dissect out the proximal perineal body structures was well. 1% lidocaine mixed wi th 1:100,000 epinephrine was used on the perineum and dilute vasopressin 40 units in 100 cc of normal saline 30 mL was injected in the posterior wall. Then, 15 blade was used to make all incisions. Va ginal epithelium and perineal epithelium were denuded carefully, especially at the site of the vagina l defect, where there was extremely thin tissue between the vagina and the rectum. Once this was pro tected and deepithelialized, the scar was very clear. Then, connective tissue of the lateral wall wa s dissected away from the vaginal epithelium, and flaps were raised on each side. Care was taken to not shorten the vaginal length. Once the connective tissues were all dissected, the distal rectovagi nal septum and the perineal body structures were then dissected all the way down onto the perineum. The defect on the proximal posterior wall was then dissected. Connective tissue in the rectovaginal septum was then from . Connective tissue from the proximal posterior wall was di ssected away from the epithelium, and dissection taken all the way through the posterior lip of the c ervix. There was a significant enterocele between the pericervical ring and the proximal portion of the remnant of the rectovaginal septum. There was a good attachment partially on the right side, whe reas there was significant motion from the left side. At this point, it was difficult to take the li mited amount of rectovaginal connective tissue to stretch it to the pericervical ring on both sides s ymmetrically and do a [place] tissue suspension and therefore, decision was made to proceed with a bio logic graft. Once the entire enterocele was dissected and exposed, then dissection was carried towards the ischial spine on the left side. Then, once the ischial spine was cleared up, the sacrospinous ligament was cleaned up by sweeping my fingers medial and posterior to the spine towards the coccyx, and the rectu m was dissected off the ligament. In a similar fashion, the right side dissection was done. Sacrosp inous ligament was exposed. Capio device was then taken. Sacrospinous fixation: The Capio device was taken with a Prolene suture and placed at least 2 finger breadths medial and posterior to the spine on the anterior surface of the ligament. Once the attachm ents were made on each side, they were held with 2 hemostats. [place] retractor was used during th e case. Posterior enterocele repair was then performed. This was done with the help of a pursestring 3-0 Mon ocryl suture in the proximal most part. Then the rest of the posterior enterocele was repaired with a 2-0 Vicryl from side to side, starting in the proximal most part inferior to the pursestring and co tyshawn down to the proximal edge of the connective tissue around this. This was stopped here to comple te the enterocele repair. Site-specific repair of the distal posterior wall on the left side: A continuous running 2-0 Vicryl suture was placed to reconnect the connective tissue in the midline to the left lateral wall in a con tinuous running fashion all the way down to the perineum. Then, in the right lateral wall as well at least for 2 cm the sutures had to be placed to reconnect the distal connective tissue to the lateral wall. Once this was done, then perineocele repair was performed. This was performed with the help of a continuous running 2-0 Vicryl suture in 2 layers, bringing the structures of the perineal body together and taking great care not to narrow the vaginal introitus or genital hiatus too much to limit function. Once the perineal body structures were all brought together, then I went back up to bring in the biol ogic graft material. Three PDS sutures 2-0 were placed in the proximal most posterior wall in the midline and on either si jakub, right inferior to the cervix on the posterior aspect of it and onto the posterior vaginal wall. When these were held on 3 different planes, the biologic graft was then taken and cut into a trapezo id, almost like a Y, with the stem of 3 cm and a proximal portion of 3 cm, where there was a wider tr apezoid left, and then the stem about 3 cm wide. Once this was trimmed, soaked, and marked, the cent er proximal area was attached to the cervix and the vagina using the three 2-0 PDS sutures. Then, th e Prolene sutures were tacked to the lateral aspects of the proximal most part of the graft with a pu lley stitch, and these were tied to the sacrospinous ligament snugly. Then, the Y segment of the gra ft was brought down all the way to the reconstructed posterior wall and tethered with 5 PDS sutures, 2 on either side at the 3 cm point laterally attaching the graft to the connective tissue on the side wall and then distally 3 sutures were placed with 2-0 PDS to connected it to the newly reconstructed posterior wall connective tissue. Once this was laid down, there was excellent reduction of the ente rocele posterior wall defect. Continue with collagen sheath from the posterior aspect of the cervix all the way down into the distal portion of the posterior wall in the newly reconstructed perineum. Then, once there was good hemostasis, the vaginal epithelium then was closed as an advancement flap, closing it as a Y. Starting laterally with a 2-0 Vicryl continuous running suture on the left side, bringing it to the center, and then going back on the right side laterally and finishing the suture. Then, a second suture of 2-0 Vicryl was taken and the stem of the Y was closed from [id number], an d tethering it down to the graft as well. A 3-0 Vicryl suture was then taken and perineum was closed in 2 layers. Rectovaginal exam was perfor med and there was no evidence of any trauma. There was a thick perineal body. The posterior vaginal wall did not have any defects. There was no levator traction from any of the sutures. Cystoscopy was performed with a 17-[place] sheath, 30-degree lens, normal saline with excellent jets o f urine from both ureteric orifices. No evidence of any trauma to the bladder on complete inspection . The bladder was then drained. Rivera was replaced. Vaginal packing was placed, and all drapes wer e removed. Instrument, needle, and sponge counts x3 were correct at the end of the case. The patien t tolerated the procedure well. EBL was 150. The patient was recovered and taken to PACU in a stabl e condition. Her was debriefed about her procedure. She will have a voiding trial in the [facility] after packing and Rivera removed, and will be discharged home based on her voiding trials and e will have a 1-week and 6-week followup. Bowel regimen has been given to the patient and daily use of vaginal estrogen cream for the first 3 months. LUCÍA/KARSTEN Voice ID: [id number] Report ID: [id number]
[2024-07-20] MEDS: LEVOTHYROXINE SOD 0.075 MG TAB PO SCH (08:06)
[2024-07-20] MEDS: VITAMIN D 1000 UNIT TAB PO SCH (08:13)
[2024-07-20] MEDS: DOCUSATE NA 100 MG CAP PO SCH (08:13)
[2024-07-20 13:00] VITALS: BP 119/61; TEMP 98
== END 2024-07-20 13:57 | disposition home health service (06) ==
LOC: OR 07:46 → 4TH 12:39
PROVIDERS: ADMIT Obstetrics & Gynecology; ATTEND Obstetrics & Gynecology
PROC: 0JUC0JZ Supplement of Pelvic Region Subcutaneous Tissue and Fascia with Synthetic Substitute, Open Approach (ICD-10-PCS; 2024-07-19)
PROC: 0JUC0JZ Supplement of Pelvic Region Subcutaneous Tissue and Fascia with Synthetic Substitute, Open Approach (ICD-10-PCS; 2024-07-19)
PROC: 0USG0ZZ Reposition Vagina, Open Approach (ICD-10-PCS; principal; 2024-07-19 09:00)
DX: N81.2 Incomplete uterovaginal prolapse (principal); N81.81 Perineocele; K59.00 Constipation, unspecified
CPT/HCPCS: 57282; 57265; 57267; 93005; 85025; 80048; 36415; 86900; 86850; 85610; 86901; 85730; 81003; 94010; J2704; J2003; J3010 ×2; J2405; J7120 ×4; J0690 ×5; A4314; G0378; G0379; J1171